=== PATIENT | female | born 1965 | race Caucasian/White ===

== ENCOUNTER 2022-01-04 16:06 | Observation (INO) | payer OTHER ==
--- NOTE | 2022-01-04 08:44 | HP ---
HISTORY AND PHYSICAL DATE OF SURGERY: 01/04/2022 Linnette Martin is a 56-year-old patient seen with a comminuted displaced left knee patellar fracture. I recommended open reduction internal fixation. I discussed the procedure, risks, complications, benefits, recovery. The patient was agreeable. Consent was obtained. PAST MEDICAL HISTORY: Hypertension, hyperlipidemia. PAST SURGICAL HISTORY: Knee arthroscopy, ACL reconstruction. DAILY MEDICATIONS: Atenolol, lisinopril, simvastatin. ALLERGIES: NONE. SOCIAL HISTORY: She smokes cigarettes. PHYSICAL EVALUATION OF LEFT KNEE: There is significant diffuse ecchymosis. Range of motion is negative 40 to 70. There is obvious defect along the mid portion of the patella consistent with a fracture. There is a moderate effusion present. She has diffuse tenderness about the patella. Her distal neurovascular exam is intact. Radiographs of the left knee revealed a severely displaced patellar fracture with comminution. IMPRESSION: 1. Left knee patellar fracture. 2. Hypertension. 3. Hyperlipidemia. PLAN: Open reduction internal fixation of left knee patellar fracture. MMODL / IJN: [id number] /
--- NOTE | 2022-01-04 15:39 | P.OP ---
Date of Procedure: 01/04/22 Preoperative Diagnosis: Displaced left knee patella fracture Postoperative Diagnosis: Displaced/comminuted left knee patella fracture Procedure(s) Performed: Open reduction and internal fixation left knee patella fracture Implants: 2Arthrex 4.0 partially-threaded cannulated screws Anesthesia: ROBERT, local Surgeon: Jairon Figueroa Teaching Manager #1: Ken Epstein Estimated Blood Loss (ml): 20 Pathology: other Condition: stable Disposition: PACU Indications for Procedure: 57-year-old patient was seen with a left knee displaced patellar fracture. I recommended open reduction and internal fixation. Patient was agreeable. Consent was obtained. Operative Findings: See description of procedure Description of Procedure: Patient was taken to the operative suite. She received preoperative IV antibiotics. Patient underwent a general anesthetic by the department of anesthesia. A well-padded tourniquet placed proximal left lower extremity. The left lower extremity was now prepped and draped in the normal sterile orthopedic fashion. The extremity was elevated translated to 300. A standard midline incision made sharply through skin. We dissected down to the patella. We immediately noted a large hematoma in the center portion patella with a transverse fracture and diastases measuring greater than 2 cm. We were debrided out the hematoma. We irrigated the joint out copiously with saline solution. We made sure we had good bony edges free of soft tissue for bone contact. With this is Mookie CANALES now reduced the fracture and clamps were positioned media lly and laterally to hold the reduction place. We brought the C-arm into the operative field demonstrating adequate reduction of her fracture. We now utilized the Arthrex guide pin guide introduced 2 guide pins through the patella one medial and lateral. We confirmed positioning of our guide pins and AP and lateral intraoperative imaging and noted adequate position. We now overdrilled the pins. We now placed appropriate length partially-threaded 4.0 Screws across that medial lateral guide pin area with good fixation noted. The guidewires were removed. C-arm confirmed adequate positioning of our cannulated screws. We now passed a #2 fiber tape in a cerclage fashion through the cannulated screws. This was secured and tied along the inferior medial margin making sure we had good compression of our [id number] cerclage technique. Residual suture limbs were clipped. The clamps were now removed. The C-arm was brought Back into the operative field noting stable reduction and stable positioning of the internal fixation. Spot films were obtained to document this. The C-arm was pulled out. The wound was irrigated. The medial lateral soft tissue deficits were repaired with #1 Ethibond. The subcu soft tissues were repaired with 2-0 Vicryl. The skin was approximated with skin jamilah. The subcu soft tissues infiltrated with half percent plain Marcaine for postoperative pain management. Sterile dressings were applied. The tourniquet was now released and immediate capillary refill the extremity noted. We applied sterile web bone Cesario bandage. The patient was placed into a long knee immobilizer. The patient was awakened and transferred to a bed and recovery stable condition. Mookie CANALES assisted in all aspect of this procedure.
[~2022-01-04 16:06] MED LIST: BUPIVACAINE (PF) 0.5% 30 ML VIAL ONE; DEXAMETHASONE SOD PHOSPHATE 4 MG/ML 1 ML VIAL ONE; HYDROcodone/APAP 5-325MG 1 EACH TAB PO PRN; HYDROcodone/APAP 7.5-325MG 1 EACH TAB PO PRN; HYDROmorphone (PF) 1 MG/ML ONE; HYDROmorphone 0.5 MG/0.5 ML SYRINGE IVP ONE; HYDROmorphone 0.5 MG/0.5 ML SYRINGE IVP PRN; LIDOCAINE 2% INJ 20 MG/ML (2 ML VIAL) ONE; MAGNESIUM HYDROXIDE 2,400 MG/10 ML CUP PO PRN; MIDAZOLAM 2 MG/2 ML VIAL ONE; NALOXONE 0.4 MG/ML 1 ML VIAL IV PRN; ONDANSETRON 4 MG/2 ML VIAL IVP PRN; ONDANSETRON 4 MG/2 ML VIAL ONE; PROPOFOL 10 MG/ML 20 ML VIAL IV ONE; SODIUM CHLORIDE 0.9% 1,000 ML BAG ONE; SUCCINYLCHOLINE CHLORIDE 100 MG/5 ML SYR IV ONE; diphenhydrAMINE 50 MG/ML 1 ML VIAL IVP ONE; fentaNYL (PF) 50 MCG/ML 2 ML AMP ONE
[2022-01-04] MEDS ORDERED: LACTATED RINGERS 1,000 ML IV ONE (16:35)
[2022-01-04 18:17] LABS: Basophils % (A) 0 %; Eosinophils % (A) 0 %; HCT 32.6 % (34.0-46.0); HGB 10.8 gm/dL (11.4-16.0); Lymphocytes # (A) 0.4 k/uL (1.0-4.8); Lymphocytes % (A) 5 %; MCH 34.7 pg (25.0-35.0); MCHC 33.1 g/dL (31.0-37.0); MCV 104.6 fL (80.0-100.0); Macrocytosis Slight; Mean Platelet Volume 7.5; Monocytes # (A) 0.2 k/uL (0-1.0); Monocytes % (A) 3 %; Neutrophils # (A) 7.7 k/uL (1.3-7.7); Neutrophils % (A) 92 %; Platelet Count 322 k/uL (150-450); RBC 3.12 m/uL (3.80-5.40); RDW 11.7 % (11.5-15.5); WBC 8.4 k/uL (3.8-10.6)
[2022-01-04 18:20] LABS: Partial Thromboplastin Time 23.6 sec (22.0-30.0); Prothrombin Time 11.1 sec (9.0-12.0)
[2022-01-04 18:28] LABS: ALT 28 U/L (4-34); AST 43 U/L (14-36); African American GFR (CKD) >90 (>60 ml/min/1.73 sqM); Alkaline Phosphatase 62 U/L (38-126); Anion Gap 6 mmol/L; Blood Urea Nitrogen 9 mg/dL (7-17); Carbon Dioxide 27 mmol/L (22-30); Chloride 98 mmol/L (98-107); Glucose 127 mg/dL (74-99); Non-African American GFR(CKD) 85 (>60 ml/min/1.73 sqM); Sodium 131 mmol/L (137-145); Total Bilirubin 1.6 mg/dL (0.2-1.3); Total Protein 6.7 g/dL (6.3-8.2)
[2022-01-04] MEDS: HYDROmorphone 1 MG/ML 1 ML SYRINGE IVP PRN (20:33)
[2022-01-04] MEDS ORDERED: SENNOSIDES-DOCUSATE SODIUM 1 EACH TAB PO SCH (21:00)
[2022-01-05] MEDS: HYDROmorphone 1 MG/ML 1 ML SYRINGE IVP PRN (03:50)
[2022-01-05 03:59] VITALS: BP 166/77; PULSE 93; RESP 18; TEMP 98.2
--- NOTE | 2022-01-05 07:38 | XR ---
EXAMINATION TYPE: XR knee limited RT, FL guidance operating room DATE OF EXAM: 01/04/2022 COMPARISON: NONE HISTORY: Patellar fracture Fluoroscopy support supplied to the referring clinician. See dictated report from orthopedic surgery , 13 seconds fluoroscopy time, single intraoperative image documents the procedure
[2022-01-05] MEDS ORDERED: ENOXAPARIN 40 MG/0.4 ML SYRINGE SQ SCH (09:00)
--- NOTE | 2022-01-05 09:54 | P.PN ---
Subjective Progress Note Date: 01/05/22 Principal diagnosis: Displaced left knee patella fracture Patient was seen at bedside this morning resting comfortably lying in semirecumbent position with Cesario bandage on left lower extremity and knee immobilizer on keeping the knee in full extension. Patient says she is doing well. She describes pain in her knee as a pins and needles type feeling. Patient says she does have crutches to use at home. Patient says she is also looking forward to go home. Patient denies chest pain, fever, shortness of breath, nausea, vomiting, change in vision, loss of bowel/bladder control. Objective - Vital Signs Vital signs: Vital Signs Temp 98.2 F 01/05/22 03:57 Pulse 93 01/05/22 03:57 Resp 18 01/05/22 03:57 BP 166/77 01/05/22 03:57 Pulse Ox 100 01/04/22 21:00 FiO2 Intake & Output 01/04/22 01/05/22 01/05/22 18:59 06:59 18:59 Intake Total 150 300 Balance 150 300 Weight 53.977 kg Intake: IV 150 Intake, IV Titration 50 Amount ceFAZolin 2 gm In Sodium 50 Chloride 0.9% 50 ml @ 100 mls/hr IVPB Q8H [facility] Rx#: [id number] Oral 250 Other: # Voids 1 1 - Exam Left knee: Incision is clean, dry, and intact. The Cesario bandage/dressing is in good condition. There is minimal soft tissue swelling and ecchymosis surrounding the medial and lateral aspects of the incision. Calf is soft, no tenderness with palpation. Plantar flexion, dorsiflexion, EHL, FHL are intact. Sensory exam to light touch throughout the extremity is intact, dorsal pedis pulses 2+. - Labs CBC & Chem 7: 01/04/22 13:43 01/04/22 17:58 Labs: Abnormal Lab Results - Last 24 Hours (Table) 01/04/22 01/04/22 Range/Units 13:43 17:58 RBC 3.12 L (3.80-5.40) m/uL Hgb 10.8 L (11.4-16.0) gm/dL Hct 32.6 L (34.0-46.0) % MCV 104.6 H (80.0-100.0) fL Lymphocytes # 0.4 L (1.0-4.8) k/uL Sodium 131 L (137-145) mmol/L Glucose 127 H (74-99) mg/dL Total Bilirubin 1.6 H (0.2-1.3) mg/dL AST 43 H (14-36) U/L Assessment and Plan Assessment: Displaced left knee patella fracture Postoperative day 1 status post - Open reduction and internal fixation left knee patella fracture Plan: 1. Displaced left knee patella fracture - surgery performed yesterday, , 01/04/2022 - Open reduction and internal fixation left knee patella fracture. Patient stable at bedside this morning with knee immobilizer on left lower extremity. Discharge home today. 2. Appreciate medical management 3. Pain management - [place]; Dilaudid only if necessary 4. DVT prophylaxis - Lovenox in hospital; aspirin 325 mg daily once home 5. GI prophylaxis - senna in hospital; Colace at home 6. PT/OT - nonweightbearing left lower extremity with knee immobilizer on. crutches 7. Encourage incentive spirometer use 8. Discharge planning - discharge home today Time with Patient: Less than 30
--- NOTE | 2022-01-05 10:56 | P.DS ---
Providers Date of admission: 01/05/22 05:32 Expected date of discharge: 01/05/22 Attending physician: Jarion Figueroa Primary care physician: Stated None Hospital Course: Date of admission: 01/04/2022 Date of discharge: 01/05/2022 Admission diagnosis: Displaced left knee patella fracture Discharge diagnosis: Displaced/comminuted left knee patella fracture Attending physician: Dr. Figueroa Surgical procedures: Open reduction and internal fixation left knee patella fracture Brief history: Patient is a 57-year-old female with a history of displaced left knee patella fracture status post fall. At this point patient has failed conservative treatment measures and has opted to proceed with a elective open reduction internal fixation left knee patella fracture. Hospital course: Details of patient's surgery can be found in operative report. Patient tolerated the procedure well and was subsequently transported to orthopedic floor. Patient's orthopeidc and medical care was provided daily. Patient had daily laboratory tests performed for evaluation of overall blood counts. Patient had daily physical therapy to include strengthening range of motion as well as education with walker ambulation. Patient was treated with Lovenox for their postoperative DVT prophylaxis during their inpatient stay. Patient was noted to have a relatively uneventful postoperative course. Patient reported satisfactory pain control with oral pain medications by postoperative day 1. Patient showed satisfactory progress with physical therapy. Patient moved steadily through the program and had no difficulty meeting the goals by postoperative day 1. Given patient's otherwise satisfactory course and having met physical therapy goals, plan is to discharge patient home on postoperative day 1. Discharge condition/disposition: Patient will be discharged home in stable condition. Discharge medications: Instructions are given on resumption of patient's normal daily medications per primary care recommendation, in addition patient will be prescribed Sperry 5 mg/325 mg; aspirin 325 mg daily 21 days; Colace. Orthopedic discharge instructions: 1. Nonweightbearing left lower extremity 2. Utilize knee immobilizer when up and about 3. Utilize walker to assist with ambulation. 4. No bending of the left knee, knee must remain straight 5. Ice and elevate 6. Aspirin 325 mg daily for DVT prophylaxis 7. [facility] 2 [facility] Assessment: Displaced left knee patella fracture Procedures: Open reduction and internal fixation left knee patella fracture Patient Condition at Discharge: Good Plan - Discharge Summary Discharge Rx Participant: No New Discharge Prescriptions: New Aspirin 325 mg PO DAILY #21 tab Docusate [Colace] 100 mg PO DAILY #30 capsule HYDROcodone/APAP 5-325MG [Sperry 5-325] 1 - 2 tab PO Q6HR PRN #27 tab PRN Reason: Pain Discharge Medication List Aspirin 325 mg PO DAILY #21 tab 01/05/22 [Rx] Docusate [Colace] 100 mg PO DAILY #30 capsule 01/05/22 [Rx] HYDROcodone/APAP 5-325MG [Sperry 5-325] 1 - 2 tab PO Q6HR PRN #27 tab 01/05/22 [Rx] Follow up Appointment(s)/Referral(s): Ken Epstein PAC [PHYSICIAN IT PROJECT MANAGER] - 2 Weeks Activity/Diet/Wound Care/Special Instructions: Orthopedic discharge instructions: 1. Nonweightbearing left lower extremity 2. Utilize knee immobilizer when up and about 3. Utilize walker to assist with ambulation. 4. No bending of the left knee, knee must remain straight 5. Ice and elevate off the 6. Aspirin 325 mg daily for DVT prophylaxis 7. [facility] up at [facility] 2 weeks Discharge Disposition: HOME SELF-CARE
--- NOTE | 2022-01-12 07:11 | CDI ---
Documentation Clarification Form Date: 01/12/2022 06:58:17 AM From: Lia Washington Phone: Admit Date: 01/05/2022 05:32:00 AM Patient Name: Linnette Martin Visit Number: [id number] Discharge Date: Payor: [facility] Dear Dr. Garcia Please provide clarification on laterality of Fluoroscopy x-ray. Procedure was performed on left side. Fluoroscopy report states right. Please clarify. Please respond below the line at the bottom. Thank you for your kind consideration. left --addended to report. DT MTDD
--- NOTE | 2022-01-12 14:47 | XR ---
Addendum: History should read left patellar fracture Addendum Dictated By:Yaya Garcia MD Addendum Signed By: <Electronically signed by Yaya Garcia MD in OV> Signed Date/Time: 01/12/22 1436 EXAMINATION TYPE: XR knee limited LT, FL guidance operating room DATE OF EXAM: 01/04/2022 COMPARISON: NONE HISTORY: Patellar fracture Fluoroscopy support supplied to the referring clinician. See dictated report from orthopedic surgery, 13 seconds fluoroscopy time, single intraoperative image documents the procedure MTDD
== END 2022-01-05 14:07 | disposition home or self-care (01) ==
LOC: OR 16:06 → 5NMEDONC 16:32 → OR 01-05 05:32
PROVIDERS: ADMIT Orthopaedic Surgery; ATTEND Orthopaedic Surgery
DX: S82.042A Displaced comminuted fracture of left patella, initial encounter for closed fracture (principal); X58.XXXA Exposure to other specified factors, initial encounter; I10 Essential (primary) hypertension; E78.5 Hyperlipidemia, unspecified; F17.210 Nicotine dependence, cigarettes, uncomplicated; Z98.890 Other specified postprocedural states; Z79.899 Other long term (current) drug therapy
CPT/HCPCS: 27524; 97162; 80053; 85025; 85610; 85730; 73560; G0378; C1713; J2250; J1200; J1100; J0690 ×2; J2405; J1650; J3010; J1170 ×3; J0330; J2704; J2001